=== PATIENT | female | born 1990 | race Caucasian/White ===

== ENCOUNTER 2019-09-19 10:18 | Emergency (ER) | payer OTHER ==
--- NOTE | 2019-09-19 12:00 | RAD REPORT ---
EXAM DESCRIPTION: CT - Head Brain Wo Cont - 09/19/2019 11:44 am CLINICAL HISTORY: DIZZINESS COMPARISON: No comparisons TECHNIQUE: Axial 5 mm thick images of the head were obtained without IV contrast. All CT scans are performed using dose optimization technique as appropriate and may include automated exposure control or mA/KV adjustment according to patient size. FINDINGS: No intracranial hemorrhage, mass, edema or shift of mid-line structures. No acute infarcti on changes seen. No abnormal extra-axial fluid collections. Ventricles are normal. Mastoid air cells are clear. Mucosal thickening seen in the sinuses without an air-fluid level. No acute bony findings. IMPRESSION: Negative noncontrast CT study for intracranial abnormality. Paranasal sinus mucosal thickening without air-fluid level.
[2019-09-19] MEDS ORDERED: MECLIZINE HCL 12.5 MG TAB ONE (12:13)
--- NOTE | 2019-09-19 12:30 | ER ---
Nurse's Notes [facility] Name: Vale Bolanos Age: 29 yrs Sex: Female : 1990 Arrival Date: 09/19/2019 Time: 10:25 Bed 17 Private MD: Diagnosis: Other peripheral vertigo Presentation: 09/18 10:50 Chief complaint: Near syncopal episode when getting out of bed this morning, now hb reports intermittent dizziness. Denies pain/fever. Coronavirus screen: Proceed with normal triage. Ebola Screen: No symptoms or risks identified at this time. Initial Sepsis Screen: Does the patient meet any 2 criteria? No. Patient's initial sepsis screen is negative. Does the patient have a suspected source of infection? No. Patient's initial sepsis screen is negative. Risk Assessment: Do you want to hurt yourself or someone else? Patient reports no desire to harm self or others. Onset of symptoms was September 19, 2019. 10:50 Method Of Arrival: Ambulatory hb 10:50 Acuity: JESSE 3 hb Triage Assessment: 11:50 General: Appears in no apparent distress. Behavior is calm. 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 - Social history:: Smoking status: Patient denies any tobacco usage or history of. Screenin:30 Abuse screen: Denies threats or abuse. Denies injuries from another. Nutritional iw screening: No deficits noted. Tuberculosis screening: No symptoms or risk factors identified. Fall Risk None identified. Assessment: 11:00 General: Appears in no apparent distress. comfortable, Behavior is calm, cooperative. iw Pain: Denies pain. Neuro: Level of Consciousness is awake, alert, obeys commands, Oriented to person, place, time, situation, Moves all extremities. Full function Reports dizziness. Cardiovascular: Patient's skin is warm and dry. Respiratory: Respiratory effort is even, unlabored, Respiratory pattern is regular, symmetrical. Derm: Skin is intact, is healthy with good turgor. 12:29 Reassessment: Patient appears in no apparent distress at this time. Patient and/or iw family updated on plan of care and expected duration. Pain level reassessed. Patient is alert, oriented x 3, equal unlabored respirations, skin warm/dry/pink. Vital Signs: 10:50 BP 127 / 89; Pulse 93; Resp 16; Temp 97.7; Pulse Ox 98% ; Weight 70.31 kg; Height 5 ft. hb 4 in. (162.56 cm); Pain 0/10; 10:50 Body Mass Index 26.61 (70.31 kg, 162.56 cm) hb ED Course: 10:25 Patient arrived in ED. mr 10:50 Patient has correct armband on for positive identification. iw 10:52 Triage completed. hb 10:52 Arm band placed on. hb 10:53 Juvenal Simon PA is PHCP. jr8 10:53 Jason Becker MD is Attending Physician. jr8 10:59 Brionna Martinez, RN is Primary Nurse. iw 11:43 CT Head Brain wo Cont In Process Unspecified. EDMS 12:30 No provider procedures requiring assistance completed. Patient did not have IV access iw during this emergency room visit. Administered Medications: 11:23 CANCELLED (Physician Discretion): NS 0.9% 1000 ml IV at 1000 ml once jr8 11:23 CANCELLED (Physician Discretion): Valium 2 mg IVP once jr8 12:07 Drug: Meclizine 25 mg Route: PO; iw Outcome: 12:29 Discharge ordered by . jr8 12:44 Discharged to home ambulatory. iw 12:44 Condition: good 12:44 Discharge instructions given to patient, Instructed on discharge instructions, follow up and referral plans. medication usage, Demonstrated understanding of instructions, follow-up care, medications, Prescriptions given X 1. 12:45 Patient left the ED. iw Signatures: Dispatcher [employer] EDID Danuta Teran mr Brionna Martinez, RN RN iw Juvenal Simon PA PA jr8 Liset Colorado RN RN
--- NOTE | 2019-09-19 12:30 | EDPHYS ---
Physician Documentation [facility] Name: Vale Bolanos Age: 29 yrs Sex: Female : 1990 Arrival Date: 09/19/2019 Time: 10:25 Bed 17 Private MD: ED Physician Jason Becker HPI: 09/18 11:27 This 29 yrs old Female presents to ER via Ambulatory with complaints of jr8 Dizziness. 11:27 The patient presents with feeling off balance. Onset: The symptoms/episode jr8 began/occurred acutely, today. Context: occurred at home, occurred while the patient was at rest. Modifying factors: The symptoms are alleviated by nothing, the symptoms are aggravated by changing position. Associated signs and symptoms: Pertinent positives: tingling. Severity of symptoms: At their worst the symptoms were mild in the emergency department the symptoms are unchanged. Patient's baseline: Neuro: alert and fully oriented, Motor: no deficits, Ambulation: walks without assistance, Speech: normal. The patient has not experienced similar symptoms in the past. The patient has not recently seen a physician. 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 - Social history:: Smoking status: Patient denies any tobacco usage or history of. ROS: 11:27 Eyes: Negative for injury, pain, redness, and discharge, ENT: Negative for injury, jr8 pain, and discharge, Neck: Negative for injury, pain, and swelling, Cardiovascular: Negative for chest pain, palpitations, and edema, Respiratory: Negative for shortness of breath, cough, wheezing, and pleuritic chest pain, Abdomen/GI: Negative for abdominal pain, nausea, vomiting, diarrhea, and constipation, Back: Negative for injury and pain, MS/Extremity: Negative for injury and deformity, Skin: Negative for injury, rash, and discoloration. 11:27 Neuro: Positive for dizziness, tingling, Negative for altered mental status, gait disturbance, headache, hearing loss, loss of consciousness, numbness, seizure activity, speech changes, syncope, near syncope, tinnitus, tremor, visual changes, weakness. Exam: 11:27 Eyes: Pupils equal round and reactive to light, extra-ocular motions intact. Lids and jr8 lashes normal. Conjunctiva and sclera are non-icteric and not injected. Cornea within normal limits. Periorbital areas with no swelling, redness, or edema. ENT: Nares patent. No nasal discharge, no septal abnormalities noted. Tympanic membranes are normal and external auditory canals are clear. Oropharynx with no redness, swelling, or masses, exudates, or evidence of obstruction, uvula midline. Mucous membranes moist. Neck: Trachea midline, no thyromegaly or masses palpated, and no cervical lymphadenopathy. Supple, full range of motion without nuchal rigidity, or vertebral point tenderness. No Meningismus. Cardiovascular: Regular rate and rhythm with a normal S1 and S2. No gallops, murmurs, or rubs. Normal PMI, no JVD. No pulse deficits. Respiratory: Lungs have equal breath sounds bilaterally, clear to auscultation and percussion. No rales, rhonchi or wheezes noted. No increased work of breathing, no retractions or nasal flaring. Abdomen/GI: Soft, non-tender, with normal bowel sounds. No distension or tympany. No guarding or rebound. No evidence of tenderness throughout. Back: No spinal tenderness. No costovertebral tenderness. Full range of motion. Skin: Warm, dry with normal turgor. Normal color with no rashes, no lesions, and no evidence of cellulitis. MS/ Extremity: Pulses equal, no cyanosis. Neurovascular intact. Full, normal range of motion. Neuro: Awake and alert, GCS 15, oriented to person, place, time, and situation. Cranial nerves II-XII grossly intact. Motor strength 5/5 in all extremities. Sensory grossly intact. Cerebellar exam normal. Normal gait. Vital Signs: 10:50 BP 127 / 89; Pulse 93; Resp 16; Temp 97.7; Pulse Ox 98% ; Weight 70.31 kg; Height 5 ft. hb 4 in. (162.56 cm); Pain 0/10; 10:50 Body Mass Index 26.61 (70.31 kg, 162.56 cm) hb MDM: 10:56 Patient medically screened. [facility] 12:28 Data reviewed: vital signs, nurses notes, lab test result(s), radiologic studies, CT jr8 scan. Data interpreted: Pulse oximetry: on room air is 98 %. Interpretation: normal. Counseling: I had a detailed discussion with the patient and/or guardian regarding: the historical points, exam findings, and any diagnostic results supporting the discharge/admit diagnosis, lab results, radiology results, the need for outpatient follow up, a family practitioner, to return to the emergency department if symptoms worsen or persist or if there are any questions or concerns that arise at home. Response to treatment: the patient's symptoms have mildly improved after treatment. 09/18 11:17 Order name: CT Head Brain wo Cont; Complete Time: 12:28 jr8 09/18 12:34 Order name: Urine Dipstick--Ancillary (enter results) 09/18 12:34 Order name: Urine --Ancillary (enter results) 09/18 11:17 Order name: Urine Test (obtain specimen); Complete Time: 12:07 8 09/18 11:17 Order name: Urine Dipstick-Ancillary (obtain specimen); Complete Time: 12:08 jr8 Administered Medications: 11:23 CANCELLED (Physician Discretion): NS 0.9% 1000 ml IV at 1000 ml once jr8 11:23 CANCELLED (Physician Discretion): Valium 2 mg IVP once jr8 12:07 Drug: Meclizine 25 mg Route: PO; iw Disposition: 13:08 Co-signature as Attending Physician, Jason Becker MD I agree with the assessment and jay plan of care. Disposition: 09/19/19 12:29 Discharged to Home. Impression: Other peripheral vertigo. - Condition is Stable. - Discharge Instructions: Benign Positional Vertigo. - Prescriptions for Meclizine 25 mg Oral Tablet - take 1 tablet by ORAL route every 8 hours As needed; 30 tablet. - Medication Reconciliation Form, Thank You Letter, Antibiotic Education, Prescription Opioid Use form. - Follow up: Private Physician; When: 5 - 6 days; Reason: Recheck today's complaints, Continuance of care, Re-evaluation by your physician. - Problem is new. - Symptoms have improved. Signatures: Dispatcher [employer] Jason Meyer MD MD cha Williams, Irene, RN RN Juvenal Simon PA PA 8 Liset Colorado RN RN Corrections: (The following items were deleted from the chart) 11 11:17 NS 0.9% 1000 ml IV at 1000 ml once ordered. jr8 jr8 11:17 Valium 2 mg IVP once ordered. jr8 jr8 11: 11:17 IV Saline Lock ordered. jr8 jr8 : 11:17 CBC+H.LAB.BRZ ordered. EDMS EDMS 11: 11:17 BASIC METABOLIC PANEL+C.LAB.BRZ ordered. EDKS EDMS 12:45 12:29 09/19/2019 12:29 Discharged to Home. Impression: Other peripheral vertigo. iw Condition is Stable. Forms are Medication Reconciliation Form, Thank You Letter, Antibiotic Education, Prescription Opioid Use. Follow up: Private Physician; When: 5 - 6 days; Reason: Recheck today's complaints, Continuance of care, Re-evaluation by your physician. Problem is new. Symptoms have improved. jr8
[2019-09-19 12:52] VITALS: BP 127/89; TEMP 97.7; O2SAT 98
[2019-09-19 13:04] LABS: Urine Blood NEGATIVE (NEG); Urine Glucose NEGATIVE (NEG); Urine Protein NEGATIVE (NEG)
== END 2019-09-19 12:45 | disposition home or self-care (01) ==
LOC: ER 10:18
DX: H81.399 Other peripheral vertigo, unspecified ear (principal)
CPT/HCPCS: 81025; 81003; 70450; 99283; J8597

== ENCOUNTER 2021-04-02 19:13 | Emergency (ER) | payer OTHER ==
[2021-04-02 21:27] LABS: Absolute Lymphocytes (CBC) 3.5 K/uL (0.7-4.9); Basophils % 0.4 % (0-1.3); Hematocrit 39.9 % (36.0-45.0); Lymphocytes % 36.2 % (15.3-44.8); MPV 7.8 fL (7.6-11.3); RBC Red Blood Cell Count 4.69 M/uL (3.86-4.86)
[2021-04-02 21:29] LABS: Protime INR 0.97
--- NOTE | 2021-04-02 21:32 | RAD REPORT ---
EXAM DESCRIPTION: Meseret Single View04/02/2021 9:08 pm CLINICAL HISTORY: Chest pain COMPARISON: none FINDINGS: The lungs appear clear of acute infiltrate. The heart is normal size IMPRESSION: No acute abnormalities displayed
[2021-04-02 21:49] LABS: ALT/SGPT 31 U/L (12-78); AST/SGOT 13 U/L (15-37); Albumin 3.8 g/dL (3.4-5.0); Alkaline Phosphatase 69 U/L (45-117); BUN Blood Urea Nitrogen 14 mg/dL (7-18); Bicarbonate 26 mmol/L (21-32); Bilirubin Direct < 0.1 mg/dL (0-0.2); Bilirubin Total 0.2 mg/dL (0.2-1.0); Glucose Level 115 mg/dL (74-106); Magnesium 2.3 mg/dL (1.8-2.4); NT PRO-BNP 16 pg/mL (<125); Potassium 3.9 mmol/L (3.5-5.1); Protein, Total 7.8 g/dL (6.4-8.2); Sodium Level 139 mmol/L (136-145); Troponin (Emerg Dept Use Only) < 0.02 ng/mL (0.0-0.045)
--- NOTE | 2021-04-02 21:58 | EDPHYS ---
Physician Documentation [facility] Name: Vale Bolanos Age: 30 yrs Sex: Female : 1990 Arrival Date: 04/02/2021 Time: 20:15 Bed Waiting Private MD: ED Physician Hans Tapia HPI: 04/02 21:56 This 30 yrs old Female presents to ER via Ambulatory with complaints of chest kb pain. 21:56 The patient or guardian reports chest pain that is located primarily in the anterior kb chest wall, bilaterally. The pain does not radiate. Associated signs and symptoms: Pertinent positives: palpitations. The chest pain is described as a heaviness. Duration: The patient or guardian reports a single episode. Modifying factors: The symptoms are alleviated by nothing. the symptoms are aggravated by nothing. Severity of pain: At its worst the pain was mild in the emergency department the pain is unchanged. The patient has experienced similar episodes in the past, multiple times. The patient has not recently seen a physician. Pt reports chest pain that started this morning. STates they were going to look at stacey lights and she felt a cold, then hot sensation across her chest so she came to get it checked out. States this has happened multiple times in the past. 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 - Social history:: Smoking status: Patient denies any tobacco usage or history of. ROS: 21:55 Constitutional: Negative for fever, chills, and weight loss. kb 21:55 Cardiovascular: Positive for chest pain, Negative for edema, orthopnea, palpitations, paroxysmal nocturnal dyspnea. 21:55 All other systems are negative. Exam: 21:56 Constitutional: This is a well developed, well nourished patient who is awake, alert, kb and in no acute distress. Head/Face: Normocephalic, atraumatic. ENT: Moist Mucous membranes Cardiovascular: Regular rate and rhythm with a normal S1 and S2. No gallops, murmurs, or rubs. No pulse deficits. Respiratory: Respirations even and unlabored. No increased work of breathing. Talking in full sentences Skin: Warm, dry with normal turgor. Normal color. MS/ Extremity: Pulses equal, no cyanosis. Neurovascular intact. Full, normal range of motion. Neuro: Awake and alert, GCS 15, oriented to person, place, time, and situation. Moves all extremities. Normal gait. Psych: Awake, alert, with orientation to person, place and time. Behavior, mood, and affect are within normal limits. Vital Signs: 21:00 BP 140 / 93; Pulse 89; Resp 18; Temp 98.1; Pulse Ox 100% on R/A; Weight 77.11 kg (R); lp1 Height 5 ft. 4 in. (162.56 cm); 21:00 Body Mass Index 29.18 (77.11 kg, 162.56 cm) lp1 MDM: 20:42 Patient medically screened. kb 21:55 Data reviewed: vital signs, nurses notes. Data interpreted: Pulse oximetry: on room air kb is 100 %. Interpretation: normal. Counseling: I had a detailed discussion with the patient and/or guardian regarding: the historical points, exam findings, and any diagnostic results supporting the discharge/admit diagnosis, lab results, radiology results, the need for outpatient follow up, a family practitioner, to return to the emergency department if symptoms worsen or persist or if there are any questions or concerns that arise at home. 04/02 20:42 Order name: Basic Metabolic Panel; Complete Time: 21:50 kb 04/02 20:42 Order name: CBC with Diff; Complete Time: 21:33 kb 04/02 20:42 Order name: LFT's; Complete Time: 21:50 kb 04/02 20:42 Order name: Magnesium; Complete Time: 21:50 kb 04/02 20:42 Order name: NT PRO-BNP; Complete Time: 21:50 kb 04/02 20:42 Order name: PT-INR; Complete Time: 21:31 kb 04/02 20:42 Order name: Troponin (emerg Dept Use Only); Complete Time: 21:50 kb 04/02 20:42 Order name: XRAY Chest (1 view); Complete Time: 21:33 kb 04/02 20:42 Order name: EKG; Complete Time: 20:45 kb 04/02 20:42 Order name: Cardiac monitoring kb 04/02 20:42 Order name: EKG - Nurse/Tech; Complete Time: 21:17 kb 04/02 20:42 Order name: IV Saline Lock; Complete Time: 21:17 kb 04/02 20:42 Order name: Labs collected and sent; Complete Time: 21:17 kb 04/02 20:42 Order name: O2 Per Protocol kb 04/02 20:42 Order name: O2 Sat Monitoring kb Administered Medications: No medications were administered Disposition: 22:30 Co-signature as Attending Physician, Hans Tapia MD I agree with the assessment and rn plan of care. Attestation: The patient's history, exam findings, diagnostics, and a summary of any interventions or procedures was reviewed in detail with Nelli CANTU. Disposition Summary: 04/02/21 21:58 Discharge Ordered Location: Home kb Condition: Stable kb Diagnosis - Chest pain, unspecified kb Followup: kb - With: Emergency Department - When: As needed - Reason: Worsening of condition Followup: kb - With: Private Physician - When: 2 - 3 days - Reason: Recheck today's complaints, Continuance of care, Re-evaluation by your physician Discharge Instructions: - Discharge Summary Sheet kb - Nonspecific Chest Pain, Adult, [id number] kb Forms: - Medication Reconciliation Form kb - Thank You Letter kb - Antibiotic Education kb - Prescription Opioid Use kb Signatures: Dispatcher [employer] Nelli Antoine FNP-C FNP-Hans Heaton MD MD rn Pena, Laura, RN RN lp1
--- NOTE | 2021-04-02 21:58 | ER ---
Nurse's Notes [facility] Name: Vale Bolanos Age: 30 yrs Sex: Female : 1990 Arrival Date: 04/02/2021 Time: 20:15 Bed Waiting Private MD: Diagnosis: Chest pain, unspecified Presentation: 04/02 21:00 Chief complaint: Patient states: dull chest pain and feeling hot and cold, tingling lp1 throughout body. 21:00 Coronavirus screen: At this time, the client does not indicate any symptoms associated lp1 with coronavirus-19. Ebola Screen: No symptoms or risks identified at this time. Initial Sepsis Screen: Does the patient meet any 2 criteria? No. Patient's initial sepsis screen is negative. Does the patient have a suspected source of infection? No. Patient's initial sepsis screen is negative. Risk Assessment: Do you want to hurt yourself or someone else? Patient reports no desire to harm self or others. Onset of symptoms was April 02, 2021. 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 - Social history:: Smoking status: Patient denies any tobacco usage or history of. Screenin:00 Abuse screen: Denies threats or abuse. Denies injuries from another. Nutritional lp1 screening: No deficits noted. Tuberculosis screening: No symptoms or risk factors identified. Fall Risk None identified. Assessment: 21:15 General: Appears in no apparent distress. Behavior is calm, cooperative, appropriate lp1 for age. Pain: Complains of pain in chest. Neuro: Level of Consciousness is awake, alert, obeys commands. Cardiovascular: Patient's skin is warm and dry. Respiratory: Respiratory effort is even, unlabored. Derm: Skin is pink, warm \T\ dry. Musculoskeletal: No deficits noted. Vital Signs: 21:00 BP 140 / 93; Pulse 89; Resp 18; Temp 98.1; Pulse Ox 100% on R/A; Weight 77.11 kg (R); lp1 Height 5 ft. 4 in. (162.56 cm); 21:00 Body Mass Index 29.18 (77.11 kg, 162.56 cm) lp1 ED Course: 20:15 Patient arrived in ED. es 20:41 Nelli Carr [facility]-C [facility] amirah 20:42 Hans Tapia MD is Attending Physician. kb 21:08 XRAY Chest (1 view) In Process Unspecified. EDMS 21:16 Initial lab(s) drawn, by me, sent to lab. Inserted saline lock: 20 gauge in right lp1 antecubital area, using aseptic technique. 21:34 Triage completed. lp1 21:35 Arm band placed on. lp1 22:00 No provider procedures requiring assistance completed. lp1 22:00 Patient has correct armband on for positive identification. lp1 22:10 IV discontinued, No redness/swelling at site. Pressure dressing applied. lp1 Administered Medications: No medications were administered Outcome: 21:58 Discharge ordered by MD. kb 22:10 Discharged to home ambulatory, with family. lp1 22:10 Condition: good 22:10 Discharge instructions given to patient, Instructed on discharge instructions, follow up and referral plans. Demonstrated understanding of instructions, follow-up care. 22:25 Patient left the ED. lp1 Signatures: Dispatcher [employer] EDTX Nelli Carr FNP-C FNP-Ckb Salyer, Edna es Pena, Laura, RN RN lp1
[2021-04-02 22:37] VITALS: BP 140/93; TEMP 98.1; O2SAT 100
== END 2021-04-02 22:25 | disposition home or self-care (01) ==
LOC: ER 19:13
DX: R07.9 Chest pain, unspecified (principal); F41.9 Anxiety disorder, unspecified
CPT/HCPCS: 36415; 71045; 80048; 80076; 83735; 83880; 84484; 85025; 85610; 93005; 99283